=== PATIENT | male | born 1970 | race Caucasian/White ===

== ENCOUNTER 2016-08-09 10:05 | Inpatient (IN) | payer BC ==
--- NOTE | ~2016-08-09 | CN ---
Consultation Report [address] [place]. [address] NAME: FLORA BULL : 72 STATUS : DIS IN PAT#: [id number] AGE: 45 ADM/REG DATE : 08/09/16 MR#: [id number] REPORT SERV DATE: 08/18/16 DICTATED BY: REHAN SORIA DATE: 08/18/16 REPORT STATUS : Draft TRANSCRIBED BY: MODL DATE: 08/18/16 CONSULTATION DATE OF CONSULTATION: 08/09/2016 I am asked to see this gentleman with abdominal pain. HISTORY OF PRESENT ILLNESS: This 45-year-old gentleman has a longstanding history of Crohn disease. This is primarily involving the small bowel and the colon. He has had several surgeries for recurrent disease. He was seen as an outpatient ten days prior to admission with increasing abdominal pain. The symptoms were refractory to oral prednisone. He has been admitted for evaluation. He reports upper abdominal pain with intermittent nausea and vomiting. He has had occasional cramping with large volume loose runny stools. There was occasional blood in the stool. He denies chills, fever, sweats, or arthralgias. GENERAL REVIEW OF SYSTEMS: Otherwise unremarkable. PHYSICAL EXAMINATION: HEENT: Head, eyes, ears, nose, and throat grossly normal. NECK: Supple. CHEST: Clear. CARDIAC: Regular rhythm without rubs or murmurs. ABDOMEN: Soft with moderate distention. Bowel sounds are active. There is mild to marked tenderness in the periumbilical area. No masses were palpable. IMPRESSION: 1. History of Crohn disease, small bowel and colon. 2. Increasing abdominal pain. PLAN: 1. Follow up lab reports. 2. Begin treatment with IV steroids and Flagyl. 3. Surgical consultation will be obtained at the earliest moment. Thank you for allowing me to see this gentleman. DWAYNE/POONAM Rehan Soria M.D. Consultation Report [address] [place]. [address] NAME: FLORA BULLNE : 72 STATUS : DIS IN PAT#: [id number] AGE: 45 ADM/REG DATE : 08/09/16 MR#: [id number] REPORT SERV DATE: 08/18/16 DICTATED BY: REHAN SORIA DATE: 08/18/16 REPORT STATUS : Draft TRANSCRIBED BY: POONAM DATE: 08/18/16 / [id number] CC: Dawson Herr MD
--- NOTE | ~2016-08-09 | DS ---
Discharge Summary [address] [place]. [address] NAME: FLORA BULL : 72 STATUS : DIS IN PAT#: [id number] AGE: 45 ADM/REG DATE : 08/09/16 MR#: [id number] REPORT SERV DATE: 08/12/16 DICTATED BY: DAWSON VILLELA DATE: 08/11/16 REPORT STATUS : Draft TRANSCRIBED BY: MODGuanako DATE: 08/11/16 ADMISSION DATE: 08/09/2016 DISCHARGE DATE: 08/11/2016 PROCEDURES DONE: On 08/10/2016 biopsy of the rectum. CONSULTATIONS: 1. Dr. Ho for Surgery. 2. Dr. Fernando Polk for GI. REASON FOR ADMISSION: Abdominal pain. HISTORY OF HOSPITAL STAY: A 45-year-old white male with past medical history of Crohn disease, tobacco abuse, alcohol abuse, presenting with abdominal pain. The patient was admitted for evaluation of his abdominal pain. The patient has had extensive surgery regarding his Crohn disease. In this admission, he was also noted to having a rectal pain. CT scan was done of the abdomen which shows no significant abscess; however, there was concern about anorectal pain; hence, biopsies were taken. The patient states that he feels much better postprocedure. GI also has been consulted for further evaluation and treatment. The patient was initially started on Levaquin and Flagyl for empiric treatment. GI felt the patient can be safely discharged. GI recommended the patient to follow up within one week's time. DISPOSITION: The patient is feeling fine, no complaint. ACTIVITY: As tolerated. DIET: Regular. INSTRUCTIONS UPON DISCHARGE: 1. The patient will follow with GI within one week's time. 2. The patient will follow up with Surgery within six weeks' time. MEDICATIONS UPON DISCHARGE: 1. Prednisone 20 mg p.o. daily. 2. Tylenol 50 mg p.o. 3. Tylenol PM p.r.n. DIAGNOSES UPON DISCHARGE: 1. Abdominal pain secondary to questionable Crohn's exacerbation. 2. Crohn's exacerbation. 3. Tobacco abuse. 4. Alcohol abuse. Discharge Summary [address] [place]. [address] NAME: FLORA BULL : 72 STATUS : DIS IN PAT#: [id number] AGE: 45 ADM/REG DATE : 08/09/16 MR#: [id number] REPORT SERV DATE: 08/12/16 DICTATED BY: DAWSON VILLELA DATE: 08/11/16 REPORT STATUS : Draft TRANSCRIBED BY: POONAM DATE: 08/11/16 ERICA/POONAM Dawson Villela MD / [id number] CC: Dawson Villela MD
--- NOTE | ~2016-08-09 | CN ---
Consultation Report [facility] [address] [place]. [address] NAME: FLORA BULL : 72 STATUS : ADM IN PAT#: [id number] AGE: 45 ADM/REG DATE : 08/09/16 MR#: [id number] REPORT SERV DATE: 08/09/16 DICTATED BY: JADIEL HO DATE: 08/09/16 REPORT STATUS : Draft TRANSCRIBED BY: MODL DATE: 08/09/16 SURGERY CONSULT NOTE DATE OF CONSULTATION: 08/09/2016 REASON FOR CONSULTATION: Consult is regarding Crohn's with anal pain. HISTORY OF PRESENT ILLNESS: This is a 45-year-old male with a 16-year history of Crohn's having been diagnosed in 2000. The patient states he has had one prior surgery in [address] Squires which was an enterectomy for obstruction. Previously, the patient states that he has been on medications including Remicade and Humira and states he has been off Humira for over seven years and previously was taking some other p.o. medications that he took daily but he does not know what this is. He states that he has now been off all medications for over a year, possibly two years secondary having doing well and having been weaned off. He does see Dr. Polk as an outpatient. He now complains that he is having increased loose bowel movements x1 year which sometimes is 15-20 times a day related to his p.o. intake. However, these intermittent flares do not usually last this long. Now, he complains of two weeks of this type of increased bowel movement activity as well as two weeks of severe anal pain with his bowel movements. He states "it feels like poison coming out of my rear-end." He was trialed on p.o. steroids as an outpatient by Dr. Polk but was refractory to this and states that he came to the hospital today because he just could not stand the pain any longer. He is now admitted for IV steroids and Flagyl. In addition to these other findings, the patient states that he has been having more rashes on his limbs recently which are otherwise unexplained but which he thinks are related to his Crohn disease. His last colonoscopy was three years ago, and the patient is not aware of the findings of the colonoscopy at this time, and I do not have records of it at this time. He states that Dr. Polk had planned to do another colonoscopy on him but was trying to get his flare under control first. PAST MEDICAL HISTORY: Includes Crohn disease. PAST SURGICAL HISTORY: Includes an enterectomy x1 with anastomosis, a right hand surgery as well as multiple colonoscopies. MEDICATIONS: Again, the patient is admitted and placed on IV steroids and Flagyl, has no outpatient Crohn's medications. He states he takes Tylenol every day, otherwise please see the MAR. ALLERGIES: INCLUDE IV DYE WHICH CAUSES A RASH AND HIVES. SOCIAL HISTORY: The patient states that he drinks approximately a six-pack of beer five to six days per week. He also smokes a pack of cigarettes per day and denies any recreational or street drugs. Consultation Report [address] [place]. [address] NAME: FLORA BULL : 72 STATUS : ADM IN PAT#: [id number] AGE: 45 ADM/REG DATE : 08/09/16 MR#: [id number] REPORT SERV DATE: 08/09/16 DICTATED BY: JADIEL HO DATE: 08/09/16 REPORT STATUS : Draft TRANSCRIBED BY: POONAM DATE: 08/09/16 REVIEW OF SYSTEMS: A comprehensive review of systems was performed and was negative except as noted in the HPI. Specifically, the patient denies any abdominal pain at this time. His only complaint is perianal and "colon pain." PHYSICAL EXAMINATION: VITAL SIGNS: Temperature 98, blood pressure 117/73, pulse of 71, respirations 16, saturating 98% on room air. HEENT: Normocephalic, atraumatic. Pupils are equal, round, reactive to light. Extraocular movements and cranial nerves 2 through 12 are grossly intact. His nares are patent. His mucous membranes are moist. There is no obvious obstruction in his oropharynx. NECK: Supple. His trachea is midline. CARDIOVASCULAR: Regular rate and rhythm. No murmurs, rubs, or gallops. LUNGS: Clear to auscultation bilaterally. No rhonchi. No wheezes. ABDOMEN: Soft, nondistended, nontender. He does have a prior midline laparotomy scar. The patient has no rebound, no point tenderness to palpation. No focal or generalized peritonitis. Bowel sounds are present in all four quadrants, and I do not appreciate any masses pulsatile or otherwise. EXTREMITIES: The patient is able to move all 4 extremities equally. He has no focal neurological deficits. I am able to palpate distal pulses in all four of his extremities. SKIN: I do not appreciate any rashes at this time. Otherwise, it is warm, dry, and intact. RECTUM: An external rectal exam was performed which showed no skin tags. No external evidence of fissures or fistulas. No erythema and no induration or fluctuance consistent with an abscess. An internal exam was deferred secondary to discomfort and pain from the patient. LABS: Hepatitis panel is negative for any acute infection but also negative for hepatitis B immunity. White blood cells 17.9, hemoglobin 15.6, hematocrit 44.3, platelets of 290, neutrophil 79.7%, lactate is 1.8 which is within normal limits. CMP shows a procalcitonin of 0.06. Sodium 141, potassium 4.0, chloride 107, CO2 of 21, BUN 10, creatinine 0.9, glucose 106, calcium 8.9, total protein 7.1, albumin 3.8, ALT 45, AST 19, alkaline phosphatase 91, total bilirubin 0.6, lipase of 509. IMAGING: A CT of the abdomen and pelvis without contrast essentially shows only heterogeneous hepatic steatosis but no other suspicious abnormalities. Specifically, there are no masses, fluid collections, or abnormally enlarged lymph nodes. There is no suspicious segment of abnormal bowel dilatation or wall thickening. No evidence of pericolonic or mesenteric inflammation. There is a noted surgical anastomosis near the ileo colic junction and no evidence of any perirectal abscess. ASSESSMENT AND PLAN: A 45-year-old male with Crohn's flare as well as proctitis. There is no evidence of any abscess at this time. I agree with IV steroids and Flagyl. 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 Again, no evidence of any abscess on CT and no indication for any surgical intervention at this time. We will follow Consultation Report [place] [address] [place]. [address] NAME: FLORA BULL : 72 STATUS : ADM IN PAT#: [id number] AGE: 45 ADM/REG DATE : 08/09/16 MR#: [id number] REPORT SERV DATE: 08/09/16 DICTATED BY: JADIEL HO DATE: 08/09/16 REPORT STATUS : Draft TRANSCRIBED BY: MODL DATE: 08/09/16 with you and are available as needed. This patient has been discussed with Dr. Ho, the attending who agrees. Thank you very much for this consult. DICTATED BY: Gisele Carrasquillo MD SE/POONAM Jadiel Ho MD / [id number] CC: Dawson Herr MD
--- NOTE | ~2016-08-09 | HP ---
History And Physical [place] [id number] [place]. [address] NAME: FLORA BULL : 72 STATUS : ADM IN [facility]#: [id number] AGE: 45 ADM/REG DATE : 08/09/16 MR#: [id number] REPORT SERV DATE: 08/09/16 DICTATED BY: JESSE MENDOZA DATE: 08/09/16 REPORT STATUS : Draft TRANSCRIBED BY: POONAM DATE: 08/09/16 DATE OF ADMISSION: 08/09/2016 CHIEF COMPLAINT: Abdominal pain. Rectal pain. HISTORY OF PRESENT ILLNESS: The patient is a very pleasant 45-year-old white male, with a 15 years history of Crohn's disease, currently off all medications. About two weeks ago, developed lower abdominal pelvic pain and rectal pain. He had some sweating and chills but did not take his temperature. He has continuous diarrhea which is a daily problem for him. He has noticed some blood on the toilet paper. He was prescribed some prednisone by Dr. Polk but he failed to improve. His pain became intense over the last 24 hours and he felt he needed to seek care at the ER. He has had some nausea and occasional vomiting but nothing significant or consistent in that regard. Again he has been off all his Crohn's medications now for at least 6 to 7 months. PAST MEDICAL HISTORY: Crohn's disease. SOCIAL HISTORY: He admits to drinking 6 to 9 beers daily. He smoked a pack per day. He is . 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 ALLERGIES: TO IV DYE. PAST SURGICAL HISTORY: He has had a bowel resection in 2006, secondary to his stricture. FAMILY HISTORY: Negative for any inflammatory bowel disease. HOME MEDICATIONS: Prednisone 20 daily. REVIEW OF SYSTEMS: Full 10-point review of systems obtained. Pertinent positives mentioned in the HPI. PHYSICAL EXAMINATION: VITAL SIGNS: His temperature is 98.0, blood pressure 126/80, pulse 86, respiratory rate 19, and sats 98%. GENERAL: Well-developed white male, in no apparent distress. HEENT: Normocephalic, atraumatic. Throat is clear. NECK: Supple. HEART: Regular rate and rhythm. LUNGS: Grossly clear. ABDOMEN: Soft, nondistended. He has some mild pelvic tenderness. EXTREMITIES: Warm and dry. SKIN: Intact. LAB AND X-RAY STUDIES: Basic metabolic panel is normal. CBC: White count 17.9, H and H 15 and 44, and platelets 290. Lactate is 1.8. Basic metabolic panel is essentially normal other than a CO2 of 21. Lipase is 508. CT abdomen and pelvis shows no evidence of acute abnormality, no fluid collections, no dilatation or wall thickening in the surgical suture line near the ileocolic junction. History And Physical [address] [address] NAME: FLORA BULL : 72 STATUS : ADM IN PAT#: [id number] AGE: 45 ADM/REG DATE : 08/09/16 MR#: [id number] REPORT SERV DATE: 08/09/16 DICTATED BY: JESSE MENDOZA DATE: 08/09/16 REPORT STATUS : Draft TRANSCRIBED BY: POONAM DATE: 08/09/16 ASSESSMENT/PLAN: 1. Crohn's with likely exacerbation as evidenced by abdominal pain; leukocytosis; blood in the stool; and not being on any immunosuppressive medications for 6 to 7 months. We would recommend placing him empirically on IV Flagyl and Levaquin. Obtain stool studies for Clostridium difficile, O and P, and culture. Provide IV fluids, p.r.n. analgesics, and antiemetics. We will go ahead and continue his prednisone for now at the current dose. If his Clostridium difficile is positive, we will start oral vancomycin and stop the IV Levaquin. I have called Dr. Polk's office, they will see him in consultation. We will defer IV steroids to him. 2. Tobacco abuse. Needs cessation. 3. EtOH abuse. We will place him on the alcohol withdrawal protocol just in case he has any evidence of withdrawal. I have recommended that he cut back on his drinking significantly. 4. Disposition pending above aforementioned plan and workup. 5. Deep venous thrombosis prophylaxis. We will hold off since he has blood in his stool. ANNA/POONAM Jesse Mendoza M.D. / [id number] CC: MD Fernando Kirk M.D.
--- NOTE | ~2016-08-09 | OP ---
Record Of Operation [facility] [address] [place]. [address] NAME: FLORA BULL : 72 STATUS : DIS IN PAT#: [id number] AGE: 45 ADM/REG DATE : 08/09/16 MR#: [id number] REPORT SERV DATE: 08/30/16 DICTATED BY: JADIEL HO DATE: 08/30/16 REPORT STATUS : Draft TRANSCRIBED BY: MODL DATE: 08/30/16 DATE OF PROCEDURE: Surgery as examined under anesthesia with biopsy. COMPLICATIONS: None. IV FLUIDS: Per Anesthesia record. ESTIMATED BLOOD LOSS: Minimal. SURGEON: Jadiel Ho MD PREPROCEDURE DIAGNOSIS: Perianal Crohn's disease. POSTPROCEDURE DIAGNOSIS: Perianal Crohn's disease. SPECIMENS: Multiple hypertrophic papillae were sent for permanent pathology. FINDINGS: The patient had a left lateral sided seizure, but no hypertrophic band, therefore, no lateral internal sphincterotomy was performed. PROCEDURE IN DETAIL: Preoperatively, the patient was definitively identified in the holding area. It was confirmed that a signed consent was on chart. The patient was then transferred to the operating room and placed in left lateral decubitus position. After appropriate surgical pause, heavy sedation was administered by Anesthesia Team. The patient was prepped and draped in normal sterile fashion. A perianal block was performed with local anesthetic with good effect. Complete exam under anesthesia with small, medium, large and extra-large Hill-Croft anoscope was anoscope was performed. See findings as mentioned above. Several small hypertrophic papillae were sent as specimens as well as the edges of the fissure. In the setting of Crohn disease, I did not perform any additional interventions on the fissure except to stretch the anal sphincter a small amount. There is no specific hypertrophic band. At the conclusion of this procedure, an extra-large Hill-Croft anoscope was easily admitted without tension in the anus. Because there do not seem to be a hypertrophic component, I elected not to inject Botox. After placement of a dry dressing the patient was returned to the supine position and back to the postanesthesia care in stable condition. DILIPN/POONAM Jadiel Ho MD / [id number] Record Of Operation [address] [address] NAME: FLORA BULL : 72 STATUS : DIS IN PAT#: [id number] AGE: 45 ADM/REG DATE : 08/09/16 MR#: [id number] REPORT SERV DATE: 08/30/16 DICTATED BY: JADIEL HO DATE: 08/30/16 REPORT STATUS : Draft TRANSCRIBED BY: POONAM DATE: 08/30/16 CC: Dawson Herr MD
[2016-08-09 10:00] LABS: BASOPHILS 0.1 %; BASOPHILS ABSOLUTE 0.02 10/3/uL (0.0-0.16); EOSINOPHILS 0.5 %; EOSINOPHILS ABSOLUTE 0.09 10/3/uL (0.0-0.53); ER CBC TAT 0 Hrs 10 Mins; HEMOGLOBIN 15.6 g/dL (13.6-17.8); IMMATURE GRANULOCYTES 0.4 %; IMMATURE GRANULOCYTES ABSOLUTE 0.08 10/3/uL (0.0-0.11); LYMPHOCYTES 15.7 %; LYMPHOCYTES ABSOLUTE 2.81 10/3/uL (0.67-4.30); MEAN CORPUS HGB CONC 35.2 g/dL (32.0-36.0); MEAN PLATELET VOLUME 8.9 fL (9.2-13.0); MONOCYTES 3.6 %; MONOCYTES ABSOLUTE 0.64 10/3/uL (0.21-1.20); NEUTROPHILS 79.7 %; PLATELET COUNT 290 10/3/uL (150-400); RBC DISTRIBUTION WIDTH 13.8 % (12.0-16.0); RED CELL COUNT 4.86 10/6/uL (4.7-6.1); WHITE BLOOD CELLS 17.9 10/3/uL (4.5-10.5)
[2016-08-09 10:01] LABS: HEMATOCRIT 44.3 % (40.0-51.0); MANUAL DIFF NO %; MEAN CORPUSCULAR HEMOGLOB 32.1 pg (26.0-34.0); MEAN CORPUSCULAR VOLUME 91.2 fL (80-100)
[~2016-08-09 10:05] MED LIST: BENTYL20 PO; DICYCLOMINE
[2016-08-09 10:16] LABS: LACTATE 1.8 MMOL/L (0.3-2.4)
[2016-08-09 10:17] LABS: A/G RATIO 1.2 (0.7-1.9); ALBUMIN 3.8 G/DL (3.5-5.0); ALKALINE PHOSPHATASE 91 U/L (45-117); BUN (BLOOD UREA NITROGEN) 10 MG/DL (6-23); CALCIUM, SERUM 8.9 MG/DL (8.5-10.4); CHLORIDE, SERUM 107 MMOL/L (96-112); CO2 (CARBON DIOXIDE) 21 MMOL/L (24-34); GFR AFRICAN AMERICAN 120 ML/MIN (>=60); GFR NON AFRICAN AMERICAN 104 ML/MIN (>=60); GLOBULIN 3.3 G/DL (2.5-4.1); GLUCOSE, SERUM 106 MG/DL (60-99); SGOT(AST) 19 U/L (5-40); SGPT(ALT) 45 U/L (5-65); SODIUM, SERUM 141 MMOL/L (135-148); TOTAL BILIRUBIN 0.6 MG/DL (0-1.2); TOTAL PROTEIN 7.1 G/DL (6.0-8.5)
[2016-08-09] MEDS ORDERED: P20 PO (11:14)
[2016-08-09] MEDS ORDERED: PREPARATIO H PR (11:16)
[2016-08-09] MEDS ORDERED: ACET500CAP PO (11:16)
[2016-08-09] MEDS ORDERED: TYLENOL PM PO (11:21)
[2016-08-09 15:51] LABS: PROCALCITONIN 0.06 ng/mL (<0.5)
[2016-08-09 17:37] LABS: ASCORBIC ACID (UR NOT ORDER) NEG (NEG); BILIRUBIN, URINE NEGATIVE (NEG); KETONE, URINE TRACE MG/DL (NEG); LEUKOCYTE ESTERASE(NOT OR NEG (NEG); WBC (NOT ORDERED) (RFLEX) < 1 (0-5)
[2016-08-10 06:10] LABS: BASOPHILS 0.1 %; BASOPHILS ABSOLUTE 0.02 10/3/uL (0.0-0.16); EOSINOPHILS 0.2 %; EOSINOPHILS ABSOLUTE 0.03 10/3/uL (0.0-0.53); HEMATOCRIT 40.9 % (40.0-51.0); HEMOGLOBIN 13.6 g/dL (13.6-17.8); IMMATURE GRANULOCYTES 0.3 %; IMMATURE GRANULOCYTES ABSOLUTE 0.04 10/3/uL (0.0-0.11); LYMPHOCYTES 23.2 %; LYMPHOCYTES ABSOLUTE 3.17 10/3/uL (0.67-4.30); MEAN CORPUSCULAR HEMOGLOB 31.1 pg (26.0-34.0); MEAN CORPUSCULAR VOLUME 93.4 fL (80-100); MEAN PLATELET VOLUME 9.1 fL (9.2-13.0); MONOCYTES 5.3 %; MONOCYTES ABSOLUTE 0.72 10/3/uL (0.21-1.20); NEUTROPHILS 70.9 %; PLATELET COUNT 248 10/3/uL (150-400); RBC DISTRIBUTION WIDTH 14.1 % (12.0-16.0); RED CELL COUNT 4.38 10/6/uL (4.7-6.1); WHITE BLOOD CELLS 13.7 10/3/uL (4.5-10.5)
[2016-08-10 06:19] LABS: MANUAL DIFF NO %; MEAN CORPUS HGB CONC 33.3 g/dL (32.0-36.0)
[2016-08-10 06:21] LABS: BUN (BLOOD UREA NITROGEN) 8 MG/DL (6-23); CALCIUM, SERUM 8.1 MG/DL (8.5-10.4); CHLORIDE, SERUM 106 MMOL/L (96-112); CO2 (CARBON DIOXIDE) 25 MMOL/L (24-34); CREATININE 0.68 MG/DL (0.70-1.30); GFR AFRICAN AMERICAN 135 ML/MIN (>=60); GFR NON AFRICAN AMERICAN 116 ML/MIN (>=60); GLUCOSE, SERUM 126 MG/DL (60-99); SGOT(AST) 11 U/L (5-40); SGPT(ALT) 31 U/L (5-65); SODIUM, SERUM 141 MMOL/L (135-148); TOTAL BILIRUBIN 0.9 MG/DL (0-1.2)
[2016-08-10 06:23] LABS: A/G RATIO 1.1 (0.7-1.9); ALBUMIN 2.9 G/DL (3.5-5.0); ALKALINE PHOSPHATASE 73 U/L (45-117); GLOBULIN 2.6 G/DL (2.5-4.1); TOTAL PROTEIN 5.5 G/DL (6.0-8.5)
[2016-08-11 06:55] LABS: BASOPHILS 0 %; EOSINOPHILS 0 %; HEMATOCRIT 40.2 % (40.0-51.0); HEMOGLOBIN 13.4 g/dL (13.6-17.8); IMMATURE GRANULOCYTES 0.5 %; IMMATURE GRANULOCYTES ABSOLUTE 0.06 10/3/uL (0.0-0.11); LYMPHOCYTES 21.6 %; LYMPHOCYTES ABSOLUTE 2.47 10/3/uL (0.67-4.30); MEAN CORPUS HGB CONC 33.3 g/dL (32.0-36.0); MEAN CORPUSCULAR HEMOGLOB 31.5 pg (26.0-34.0); MEAN CORPUSCULAR VOLUME 94.4 fL (80-100); MONOCYTES 6.5 %; MONOCYTES ABSOLUTE 0.74 10/3/uL (0.21-1.20); NEUTROPHILS 71.4 %; NEUTROPHILS ABSOLUTE 8.18 10/3/uL (2.02-8.40); PLATELET COUNT 248 10/3/uL (150-400); RBC DISTRIBUTION WIDTH 13.9 % (12.0-16.0); RED CELL COUNT 4.26 10/6/uL (4.7-6.1); WHITE BLOOD CELLS 11.5 10/3/uL (4.5-10.5)
[2016-08-11 06:56] LABS: MANUAL DIFF NO %
[2016-08-11 07:12] LABS: ALBUMIN 2.9 G/DL (3.5-5.0); ALKALINE PHOSPHATASE 71 U/L (45-117); BUN (BLOOD UREA NITROGEN) 8 MG/DL (6-23); CALCIUM, SERUM 8.4 MG/DL (8.5-10.4); CHLORIDE, SERUM 106 MMOL/L (96-112); CO2 (CARBON DIOXIDE) 28 MMOL/L (24-34); CREATININE 0.63 MG/DL (0.70-1.30); GFR AFRICAN AMERICAN 139 ML/MIN (>=60); GFR NON AFRICAN AMERICAN 120 ML/MIN (>=60); GLUCOSE, SERUM 135 MG/DL (60-99); PHOSPHORUS, SERUM 3.2 MG/DL (2.5-4.5); SGOT(AST) 15 U/L (5-40); SGPT(ALT) 29 U/L (5-65); SODIUM, SERUM 141 MMOL/L (135-148); TOTAL BILIRUBIN 0.5 MG/DL (0-1.2); TOTAL PROTEIN 5.9 G/DL (6.0-8.5)
[2016-08-17] MEDS ORDERED: FLAG500TAB PO (17:25)
[2016-08-17] MEDS ORDERED: NIFEDIPINE (17:29)
== END 2016-08-11 19:09 | disposition home or self-care (01) | DRG 346 ==
LOC: ER 10:05 → 2SO 12:30
PROVIDERS: Hospitalist; Internal Medicine; Nurse Practitioner; Surgery
PROC: 0DBE0ZX Excision of Large Intestine, Open Approach, Diagnostic (ICD-10-PCS; principal; 2016-08-10 16:45)
DX: K50.111 Crohn's disease of large intestine with rectal bleeding (principal); F10.10 Alcohol abuse, uncomplicated; F17.210 Nicotine dependence, cigarettes, uncomplicated; K62.89 Other specified diseases of anus and rectum; K60.2 Anal fissure, unspecified; Z79.52 Long term (current) use of systemic steroids; Z90.49 Acquired absence of other specified parts of digestive tract
CPT/HCPCS: 74176; 80053; 81001; 82150; 83605; 83690; 83735; 84100; 84145; 85025; 87040; 87045; 87046; 87046-59; 87328; 87329; 87493; 87493-59; 87899; 87899-59; 88305; 89055; 96374; 99285; A9270-GY; J1170; J1720; J1956; J2250; J2405; J3010; J3411

== ENCOUNTER 2016-08-18 12:13 | Day surgery (SDC) | payer BC ==
--- NOTE | ~2016-08-18 | EGD ---
EGD REPORT [facility] [address] [place] [address] NAME: FLORA DUGAN : 72 STATUS : REG [facility]#: [id number] AGE: 45 ADM/REG DATE : 08/18/16 MR#: [id number] REPORT SERV DATE: 08/18/16 DICTATED BY: REHAN SORIA DATE: 08/18/16 REPORT STATUS : Draft TRANSCRIBED BY: [facility] DATE: 08/18/16 Endoscopy Center Patient Name: Flora Dugan Date of : 1970 Attending MD: REHAN SORIA MD Procedure Date No Time: 08/18/2016 Procedure: Colonoscopy Indications: Pelvic pain, Personal history of Crohn's disease Medicines: Propofol per Anesthesia Complications: No immediate complications. Procedure: Pre-Anesthesia Assessment: - ASA Grade Assessment: II - A patient with mild systemic disease. After I obtained informed consent, the scope was passed under direct vision. Throughout the procedure, the patient's blood pressure, pulse, and oxygen saturations were monitored continuously. The CF [id number] was introduced through the anus and advanced to the cecum, identified by appendiceal orifice and ileocecal valve. The colonoscopy was performed without difficulty. The patient tolerated the procedure well. The quality of the bowel preparation was good. Findings: A patchy area of mildly erythematous mucosa was found in the sigmoid colon. The exam was otherwise without abnormality on direct and retroflexion views. Impression: - Erythematous mucosa in the sigmoid colon. - The examination was otherwise normal on direct and retroflexion views. Procedure Code(s): --- Professional --- 40272, Colonoscopy, flexible, proximal to splenic flexure; diagnostic, with or without collection of specimen(s) by brushing or washing, with or without colon decompression (separate procedure) Diagnosis Code(s): --- Professional --- K63.9, Disease of intestine, unspecified R10.2, Pelvic and perineal pain Z87.19, Personal history of other diseases of the digestive system EGD REPORT [place] [address] [address] NAME: FLORA DUGAN : 72 STATUS : REG [facility] PAT#: [id number] AGE: 45 ADM/REG DATE : 08/18/16 MR#: [id number] REPORT SERV DATE: 08/18/16 DICTATED BY: REHAN SORIA DATE: 08/18/16 REPORT STATUS : Draft TRANSCRIBED BY: [facility] DATE: 08/18/16 CPT copyright 2013 [employer]. All rights reserved. The codes documented in this report are preliminary and upon closing coordinator review may be revised to meet current compliance requirements. REHAN SORIA MD 08/18/2016 1:41 PM This report has been signed electronically. Number of Addenda: 0 Note Initiated On: 08/18/2016 1:09 PM Scope Withdrawal Time 0 hours 3 minutes [address] [place], [place] [address] [address]
[~2016-08-18 12:13] MED LIST changes: +ACET500CAP PO; +FLAG500TAB PO; +NIFEDIPINE; +P20 PO; +PREPARATIO H PR; +TYLENOL PM PO
== END 2016-08-18 23:59 | disposition home or self-care (01) ==
LOC: DMU 12:13
PROVIDERS: Internal Medicine Gastroenterology
PROC: 0DJD8ZZ Inspection of Lower Intestinal Tract, Via Natural or Artificial Opening Endoscopic (ICD-10-PCS; principal; 2016-08-18 13:30)
DX: K63.9 Disease of intestine, unspecified (principal); F17.210 Nicotine dependence, cigarettes, uncomplicated; Z87.19 Personal history of other diseases of the digestive system; Z88.5 Allergy status to narcotic agent; Z98.890 Other specified postprocedural states

== ENCOUNTER 2016-09-12 19:02 | Inpatient (IN) | payer BC ==
--- NOTE | ~2016-09-12 | DS ---
Discharge Summary [facility] [address] [facility] [place]. [address] NAME: FLORA BULL : 72 STATUS : DIS IN PAT#: [id number] AGE: 46 ADM/REG DATE : 09/12/16 MR#: [id number] REPORT SERV DATE: 12/07/16 DICTATED BY: REHAN SORIA DATE: 12/05/16 REPORT STATUS : Draft TRANSCRIBED BY: POONAM DATE: 12/05/16 ADMISSION DATE: 09/12/2016 DISCHARGE DATE: 09/18/2016 PRINCIPAL DIAGNOSIS: Crohn disease. SECONDARY DIAGNOSIS: Abdominal pain. This gentleman with Crohn disease was admitted with recurrent nausea and vomiting. He has a known history of Crohn disease, which has been resected in the past. Examination on admission showed mild abdominal tenderness and mild distention. HOSPITAL COURSE: CT of the abdomen and small bowel series did show mild stricturing in the terminal ileum. He was treated with steroids and seemed to improve. He is discharged to be followed as an outpatient. CONDITION AT DISCHARGE: Stable. DISPOSITION: Outpatient followup. NADIA Rehan Soria M.D. / [id number] CC: Rehan Soria M.D. NO PCP
--- NOTE | ~2016-09-12 | CN ---
Consultation Report [facility] [address] [place]. [address] NAME: FLORA BULL : 72 STATUS : DIS IN PAT#: [id number] AGE: 45 ADM/REG DATE : 09/12/16 MR#: [id number] REPORT SERV DATE: 09/18/16 DICTATED BY: JADIEL HO DATE: 09/18/16 REPORT STATUS : Draft TRANSCRIBED BY: MODL DATE: 09/18/16 SURGERY CONSULTATION NOTE DATE OF CONSULTATION: 09/12/2016 REASON FOR CONSULT: History of Crohn disease with abdominal pain. HISTORY OF PRESENT ILLNESS: This is a 45-year-old man, known to this service with a history of chronic abdominal pain, diarrhea, known anal fissure, and a known history of Crohn's. He presented to the hospital this admission due to persistence of his abdominal pain. Of note, he has been on steroids as an outpatient and has recently started his Humira dosing. He does endorse some associated nausea and vomiting which are resolving. Denies any fevers. Denies any chills. Denies any acute change to his bowel habits, but is still having some diarrhea and loose stools, occasionally blood-tinged. PAST MEDICAL HISTORY: Crohn's disease. PAST SURGICAL HISTORY: Right hand surgery, colonoscopy, small-bowel resection with anastomosis due to stricture. SOCIAL HISTORY: Significant for alcohol use. He is a 7-pywr-ceb-day smoker. Denies illicit drug use. ALLERGIES: IV DYE. HOME MEDICATIONS: PPI, Humira, prednisone, Flagyl, and [place]. REVIEW OF SYSTEMS: Pertinent positives and negatives as above per the HPI. Of note, the patient does say that he was able to follow up as an outpatient with Dr. Ho after a previous admission with consultation at which point, there was no acute change to his care. However, it was noted the patient was diagnosed with an anal fissure at that time. However, it was determined that the patient would need better control of his Crohn disease before additional interventions would be undergone for the fissure. PHYSICAL EXAMINATION: VITAL SIGNS: Temperature 98.4, blood pressure 123/79, heart rate 107, respirations 18, breathing 96% on room air. GENERAL: This is a dull, white male, in no acute distress. He is nontoxic appearing. CARDIOVASCULAR: Regular rate and rhythm. PULMONARY: Clear to auscultation bilaterally. ABDOMEN: Soft, nondistended. Focally tender to palpation at the epigastrium. On review, no rebound, no guarding, no peritonitis. RECTAL: Externally, there were no lesions noted. Digital exam was deferred due to pain and Consultation Report [facility] [id number] [place]. [address] NAME: FLORA BULL : 72 STATUS : DIS IN PAT#: [id number] AGE: 45 ADM/REG DATE : 09/12/16 MR#: [id number] REPORT SERV DATE: 09/18/16 DICTATED BY: JADILE HO DATE: 09/18/16 REPORT STATUS : Draft TRANSCRIBED BY: POONAM DATE: 09/18/16 his known fissure. LABS: White count 17.7, hematocrit 41, platelets 324. Renal panels within normal limits. Total bilirubin 0.5. IMAGING: Plain film of the abdomen reveals nonspecific gas pattern. ASSESSMENT AND PLAN: This is a 45-year-old male, known to have a history of Crohn disease with abdominal pain, diarrhea, and leukocytosis. 1. Benign abdominal exam. The patient is currently clinically stable. 2. Agree with IV antibiotics and steroids for likely Crohn's flare. 3. We will follow along with serial exams and monitor the patient's progression. DICTATED BY: MD ROSALVA Begum/POONAM Jadiel Ho MD / [id number] CC: Fernando Polk M.D.
--- NOTE | ~2016-09-12 | HP ---
History And Physical [address] [address] NAME: FLORA BULL : 72 STATUS : ADM IN PAT#: [id number] AGE: 45 ADM/REG DATE : 09/12/16 MR#: [id number] REPORT SERV DATE: 09/13/16 DICTATED BY: REHAN SORIA DATE: 09/13/16 REPORT STATUS : Draft TRANSCRIBED BY: POONAM DATE: 09/13/16 DATE OF ADMISSION: 09/12/2016 This gentleman is being admitted with nausea, vomiting, and abdominal pain. HISTORY OF PRESENT ILLNESS: This 45-year-old gentleman has a longstanding history of Crohn disease. He has had two resections of the bowel in the past. Recent developments have included rectal discomfort with the fissure found by Dr. Ho of Surgery Department. In the last week or so, he has had increasing epigastric pain with nausea and vomiting. He has had intermittent diarrhea without blood in the stools. He notes weakness and fatigue, and denies chills or fever. OUTPATIENT MEDICATIONS: Include prednisone 40 mg daily as well as Humira. PHYSICAL EXAMINATION: HEENT: Head, eyes, ears, nose, and throat are grossly normal. NECK: Supple. CHEST: Clear. CARDIAC: Regular rhythm without rubs or murmurs. ABDOMEN: Soft with mild periumbilical tenderness. Bowel sounds are active and high pitched. Abdomen is slightly distended with no palpable masses. It is mildly to moderately tympanitic. IMPRESSION: 1. Crohn disease, colon and small intestine. 2. Nausea, vomiting, question small bowel Crohn disease with obstruction. PLAN: Admit for diagnosis and treatment. We will use IV steroids and antibiotics. We will check CT of the abdomen and small bowel series. Dr. Ho of Surgery has been consulted. DWAYNE/POONAM Rehan Soria M.D. / [id number] CC: Rehan Soria M.D.
[2016-09-12] MEDS ORDERED: PRILO PO (19:38)
[2016-09-12] MEDS ORDERED: NORCO1 TA1 PO (19:38)
[2016-09-12] MEDS ORDERED: FLAG500TAB PO (19:38)
[2016-09-12] MEDS ORDERED: PREVALITE4 G1 PO (19:38)
[2016-09-12] MEDS ORDERED: P20 PO (19:39)
[2016-09-12] MEDS ORDERED: HUMIRA PEN SC ×3 (19:42→19:44)
[2016-09-12 21:23] LABS: BASOPHILS 0.1 %; BASOPHILS ABSOLUTE 0.01 10/3/uL (0.0-0.16); EOSINOPHILS 0.6 %; EOSINOPHILS ABSOLUTE 0.11 10/3/uL (0.0-0.53); HEMATOCRIT 41.8 % (40.0-51.0); HEMOGLOBIN 14.5 g/dL (13.6-17.8); IMMATURE GRANULOCYTES 0.5 %; IMMATURE GRANULOCYTES ABSOLUTE 0.08 10/3/uL (0.0-0.11); LYMPHOCYTES 35.2 %; LYMPHOCYTES ABSOLUTE 6.22 10/3/uL (0.67-4.30); MEAN CORPUS HGB CONC 34.7 g/dL (32.0-36.0); MEAN CORPUSCULAR HEMOGLOB 32.3 pg (26.0-34.0); MEAN CORPUSCULAR VOLUME 93.1 fL (80-100); MEAN PLATELET VOLUME 8.9 fL (9.2-13.0); MONOCYTES ABSOLUTE 1.23 10/3/uL (0.21-1.20); NEUTROPHILS 56.6 %; RBC DISTRIBUTION WIDTH 14.7 % (12.0-16.0); RED CELL COUNT 4.49 10/6/uL (4.7-6.1)
[2016-09-12 21:24] LABS: MANUAL DIFF NO %; PLATELET COUNT 324 10/3/uL (150-400); WHITE BLOOD CELLS 17.7 10/3/uL (4.5-10.5)
[2016-09-12 21:42] LABS: EOSINOPHILS 1 %; EOSINOPHILS ABSOLUTE (CALC) 0.18 10/3/uL (0.0-0.53); LYMPHOCYTES 35 %; MONOCYTES 6 %; MONOCYTES ABSOLUTE (CALC) 1.06 10/3/uL (0.21-1.20); NEUTROPHILS ABSOLUTE (CALC) 10.27 10/3/uL (2.02-8.40); PLATELET ESTIMATE ADQ (ADEQUATE); RBC MORPHOLOGY NORM (NORMAL); SEGMENTED NEUTROPHIL (0) 58 %; TOTAL NUCLEATED CELLS 100
[2016-09-12 21:49] LABS: A/G RATIO 1.3 (0.7-1.9); ALKALINE PHOSPHATASE 65 U/L (45-117); CHLORIDE, SERUM 105 MMOL/L (96-112); CO2 (CARBON DIOXIDE) 32 MMOL/L (24-34); CREATININE 1.03 MG/DL (0.70-1.30); GFR AFRICAN AMERICAN 102 ML/MIN (>=60); GFR NON AFRICAN AMERICAN 88 ML/MIN (>=60); GLOBULIN 2.8 G/DL (2.5-4.1); POTASSIUM, SERUM 3.6 MMOL/L (3.5-5.3); SGOT(AST) 11 U/L (5-40); SGPT(ALT) 28 U/L (5-65); SODIUM, SERUM 141 MMOL/L (135-148); TOTAL BILIRUBIN 0.5 MG/DL (0-1.2); TOTAL PROTEIN 6.3 G/DL (6.0-8.5)
[2016-09-12 21:51] LABS: ALBUMIN 3.5 G/DL (3.5-5.0); BUN (BLOOD UREA NITROGEN) 14 MG/DL (6-23); GLUCOSE, SERUM 106 MG/DL (60-99)
[2016-09-12 22:23] LABS: SED RATE 6 MM/HR (0-15)
[2016-09-12 23:20] LABS: C-REACTIVE PROTEIN < 2.9 MG/L (<8.0)
[2016-09-14 04:58] LABS: BASOPHILS 0.1 %; BASOPHILS ABSOLUTE 0.01 10/3/uL (0.0-0.16); EOSINOPHILS 0.1 %; EOSINOPHILS ABSOLUTE 0.01 10/3/uL (0.0-0.53); HEMATOCRIT 39.5 % (40.0-51.0); HEMOGLOBIN 13.3 g/dL (13.6-17.8); IMMATURE GRANULOCYTES 0.3 %; IMMATURE GRANULOCYTES ABSOLUTE 0.03 10/3/uL (0.0-0.11); LYMPHOCYTES 23.6 %; MANUAL DIFF NO %; MEAN CORPUS HGB CONC 33.7 g/dL (32.0-36.0); MEAN CORPUSCULAR HEMOGLOB 31.7 pg (26.0-34.0); MEAN PLATELET VOLUME 8.8 fL (9.2-13.0); MONOCYTES 5.8 %; MONOCYTES ABSOLUTE 0.59 10/3/uL (0.21-1.20); NEUTROPHILS 70.1 %; NEUTROPHILS ABSOLUTE 7.11 10/3/uL (2.02-8.40); PLATELET COUNT 269 10/3/uL (150-400); RBC DISTRIBUTION WIDTH 14.9 % (12.0-16.0); WHITE BLOOD CELLS 10.2 10/3/uL (4.5-10.5)
[2016-09-14 05:13] LABS: CALCIUM, SERUM 8.4 MG/DL (8.5-10.4); CHLORIDE, SERUM 109 MMOL/L (96-112); CREATININE 0.72 MG/DL (0.70-1.30); GFR AFRICAN AMERICAN 131 ML/MIN (>=60); GFR NON AFRICAN AMERICAN 113 ML/MIN (>=60); POTASSIUM, SERUM 4.1 MMOL/L (3.5-5.3); SODIUM, SERUM 142 MMOL/L (135-148)
[2016-09-14 05:21] LABS: BUN (BLOOD UREA NITROGEN) 6 MG/DL (6-23); CO2 (CARBON DIOXIDE) 26 MMOL/L (24-34); GLUCOSE, SERUM 148 MG/DL (60-99)
[2016-09-17 04:17] LABS: BASOPHILS 0 %; EOSINOPHILS 0 %; HEMATOCRIT 38.7 % (40.0-51.0); HEMOGLOBIN 12.7 g/dL (13.6-17.8); IMMATURE GRANULOCYTES 0.6 %; IMMATURE GRANULOCYTES ABSOLUTE 0.06 10/3/uL (0.0-0.11); LYMPHOCYTES 24.8 %; LYMPHOCYTES ABSOLUTE 2.46 10/3/uL (0.67-4.30); MEAN CORPUS HGB CONC 32.8 g/dL (32.0-36.0); MEAN CORPUSCULAR HEMOGLOB 31.3 pg (26.0-34.0); MEAN CORPUSCULAR VOLUME 95.3 fL (80-100); MEAN PLATELET VOLUME 9.4 fL (9.2-13.0); MONOCYTES 6.6 %; MONOCYTES ABSOLUTE 0.66 10/3/uL (0.21-1.20); NEUTROPHILS ABSOLUTE 6.75 10/3/uL (2.02-8.40); PLATELET COUNT 248 10/3/uL (150-400); RBC DISTRIBUTION WIDTH 14.6 % (12.0-16.0); RED CELL COUNT 4.06 10/6/uL (4.7-6.1); WHITE BLOOD CELLS 9.9 10/3/uL (4.5-10.5)
[2016-09-17 04:20] LABS: MANUAL DIFF NO %
[2016-09-17 04:30] LABS: BUN (BLOOD UREA NITROGEN) 8 MG/DL (6-23); CALCIUM, SERUM 8.5 MG/DL (8.5-10.4); CHLORIDE, SERUM 108 MMOL/L (96-112); CO2 (CARBON DIOXIDE) 27 MMOL/L (24-34); CREATININE 0.83 MG/DL (0.70-1.30); GFR AFRICAN AMERICAN 124 ML/MIN (>=60); GFR NON AFRICAN AMERICAN 107 ML/MIN (>=60); GLUCOSE, SERUM 148 MG/DL (60-99); POTASSIUM, SERUM 4.2 MMOL/L (3.5-5.3); SODIUM, SERUM 142 MMOL/L (135-148)
[2016-09-17 04:38] LABS: C-REACTIVE PROTEIN < 2.9 MG/L (<8.0)
== END 2016-09-18 14:51 | disposition home or self-care (01) | DRG 386 ==
LOC: 4EA 19:02
PROVIDERS: Internal Medicine Gastroenterology
DX: K50.812 Crohn's disease of both small and large intestine with intestinal obstruction (principal); F17.210 Nicotine dependence, cigarettes, uncomplicated; Z79.52 Long term (current) use of systemic steroids; Z91.041 Radiographic dye allergy status
CPT/HCPCS: 74020; 74150; 74249; 80048; 80053; 83735; 85025; 85652; 86140; A9270-GY; J1170; J1720; J2405; J2550

== ENCOUNTER 2016-09-20 03:00 | Observation (INO) | payer BC ==
--- NOTE | ~2016-09-20 | HP ---
History And Physical [facility] [address] [place]. [address] NAME: FLORA DUGAN : 72 STATUS : ADM Sindy PAT#: [id number] AGE: 45 ADM/REG DATE : 09/20/16 MR#: [id number] REPORT SERV DATE: 09/20/16 DICTATED BY: MISTY SHIPLEY DATE: 09/20/16 REPORT STATUS : Draft TRANSCRIBED BY: MODL DATE: 09/20/16 DATE OF ADMISSION: 09/20/2016 POINT OF ENTRY: [facility]. PRIMARY CARE PHYSICIAN: None at this time. PRIMARY FAMILY LIVING EDUCATOR: Dr. Polk. CHIEF COMPLAINT: Chest pain. HISTORY OF PRESENT ILLNESS: Mr. Dugan is a 45-year-old with history of Crohn disease, currently on prednisone as well as Humira, who presents to the emergency department today with reports of acute onset of left-sided chest pain. The patient was recently admitted to the GI Service at [facility] from 09/12 through 09/18 with Crohn's exacerbation where he received IV Solu-Medrol as well as completed the starter pack of Humira, which he began in late August. The patient states that upon returning from work on the , he noted that he had bilateral lower extremity swelling and edema without any pain or tenderness. He elevated his legs that evening. Later that evening, he was woken from sleep with the acute onset of left- sided chest pain, described as a pressure. Denied any radiation, but did endorse some diaphoresis and shortness of breath. Also endorsed some pleuritic component as the chest pain was made worse with deep inspiration. This pain lasted for a few hours prompting his presentation to the emergency department. Prior to presentation, he did take 650 mg of aspirin as well as EMS gave him some nitroglycerin without significant improvement in his chest pain. While being evaluated here in the emergency department, his chest pain started to slowly fade away and is now almost completely gone. Initial evaluation in the emergency department, chest x-ray is clear. EKG; nonischemic. Troponin was negative. Labs otherwise negative except for a white count of 15,900. The patient was subsequently admitted to the Hospitalist Service for further evaluation and management. Comprehensive systems otherwise negative unless listed in history of present illness. MEDICAL HISTORY: 1. Crohn disease. 2. Active tobacco abuse. 3. Alcohol abuse. 4. Chronic abdominal pain. SURGICAL HISTORY: Small bowel resection with anastomosis. ALLERGIES: IODINE AND IV CONTRAST, WHICH CAUSE HIVES. History And Physical [address] [address] NAME: FLORA DUGAN : 72 STATUS : ADM Sindy PAT#: [id number] AGE: 45 ADM/REG DATE : 09/20/16 MR#: [id number] REPORT SERV DATE: 09/20/16 DICTATED BY: MISTY SHIPLEY DATE: 09/20/16 REPORT STATUS : Draft TRANSCRIBED BY: POONAM DATE: 09/20/16 HOME MEDICATIONS: 1. Flagyl 500 mg q.8 hours. 2. Omeprazole 20 mg at bedtime. 3. Prednisone 40 mg daily. SOCIAL HISTORY: He does smoke about a pack per day, has for the last 30 years. He drinks about six beers nightly. Denies any illicits. FAMILY MEDICAL HISTORY: Mother with hypertension, diabetes, and congestive heart failure. Father with history of liver disease and alcoholism siblings otherwise healthy. No known immediate family history of premature coronary artery disease. LABS AND IMAGIN. White count 15.9, hemoglobin 14.4, hematocrit 41.7, platelet count is 273. INR 0.9. 2. Sodium is 144, potassium 3.7, chloride 107, carbon dioxide 29, BUN 10, creatinine 0.88, glucose is 90, calcium is 8.7, protein 5.8, albumin is 3.0, bilirubin is 0.4, ALT is 42, AST 13, alkaline phosphatase is 63. 3. Lipase is 382. 4. Troponin less than 0.02. 5. EKG per my review shows normal sinus rhythm. No evidence of any acute ischemia or infarction. Heart rates were in the 70s. Chest x-ray per review shows no acute cardiopulmonary abnormality. PHYSICAL EXAMINATION: VITAL SIGNS: Temperature is 98.1 degrees Fahrenheit, pulse is 72, respirations 16, saturating 100% on room air, blood pressure 160/93. GENERAL: Patient is awake, alert, in no acute distress. Resting comfortably. He is a well developed, well-nourished, male. Family is at bedside. HEENT: Atraumatic and normocephalic. Moist mucous membranes. Pupils are equal, round, reactive to light and accommodation. Extraocular eye movements are intact. No scleral icterus. NECK: No jugular venous distention. No carotid bruits. CARDIAC: Regular rate and rhythm. No murmurs or gallops. Normal S1, S2. LUNGS: Clear to auscultation bilaterally. No wheezes, rhonchi, or crackles. ABDOMEN: Soft, nontender, nondistended with good bowel sounds. No rebound, guarding, or rigidity. EXTREMITIES: Warm, perfused. No cyanosis or clubbing. Does have some trace pedal edema, but no palpable cords or tenderness on palpation. SKIN: Warm and dry. PSYCH: Affect appropriate. NEURO: Alert, oriented x3. Cranial nerves 2 through 12 grossly intact. Speech is normal. Gait not assessed. ASSESSMENT AND PLAN: Mr. Dugan is a 45-year-old gentleman who presents with acute onset of chest pain with a pleuritic component. History And Physical [address] [address] NAME: FLORA DUGAN : 72 STATUS : ADM Sindy PAT#: [id number] AGE: 45 ADM/REG DATE : 09/20/16 MR#: [id number] REPORT SERV DATE: 09/20/16 DICTATED BY: MISTY SHIPLEY DATE: 09/20/16 REPORT STATUS : Draft TRANSCRIBED BY: POONAM DATE: 09/20/16 PROBLEM LIST: 1. Chest pain. 2. Pleuritic chest pain. 3. Leukocytosis. 4. Lower extremity swelling. 5. Crohn disease, on prednisone. PLAN: 1. Chest pain. The patient does have cardiac risk factors including tobacco abuse as well as underlying inflammatory bowel disease. We will continue to trend out cardiac enzymes. Check an echocardiogram as well as a stress test in the morning. Continue the patient on low-dose aspirin as well as nitroglycerin p.r.n. It is possible this could be some kind of medication side effect from Humira as review of Lexicomp does list as less frequent events including chest pain and pericarditis. 2. Pleuritic chest pain. Given the patient's pleuritic chest pain, I think it is worthwhile to rule out PE especially in light of recent hospitalization, recent surgery. Of note, his Wells score is only 1.5, however, it escalates to 4.5 if PE is considered the #1 diagnosis. We will premedicate the patient with prednisone as well as Benadryl and Pepcid and schedule CT of the chest later in the day. 3. Lower extremity edema. I suspect it is due to patient being on high-dose steroids during his previous hospitalization as well as likely IV fluid administration as they were symmetrical and without tenderness or pain, but will order a lower extremity Doppler to rule out DVT. 4. Leukocytosis likely steroid induced. We will continue to monitor. 5. Crohn disease. Continue the patient's home medications. No current troubles at this time. 6. DVT prophylaxis. Lovenox subcu. CODE STATUS: The patient wishes to be full code. JCB/MODL Misty Shipley MD / [id number] CC: Swati Galvan M.D.
--- NOTE | ~2016-09-20 | DS ---
Discharge Summary [facility] [address] [place]. [address] NAME: FLORA BULL : 72 STATUS : DIS Sindy PAT#: [id number] AGE: 45 ADM/REG DATE : 09/20/16 MR#: [id number] REPORT SERV DATE: 09/22/16 DICTATED BY: DATE: REPORT STATUS : Draft TRANSCRIBED BY: MODL DATE: 09/21/16 ADMISSION DATE: 09/20/2016 DISCHARGE DATE: 09/21/2016 DISCHARGE DIAGNOSES: 1. Chest pain. 2. Pleuritic chest pain. 3. Bilateral lower extremity edema. 4. Leukocytosis. 5. Anxiety. 6. Crohn's disease. PROCEDURES AND IMAGIN. Chest PA and lateral showed no acute process. 2. 09/20/2016, venous Doppler bilateral lower extremities showed no evidence of deep vein thrombosis in bilateral lower extremities. 3. 09/20/2016 CTA of the chest showed no evidence of pulmonary embolus. Minor focal subsegmental atelectasis, right middle lobe. Contracted gallbladder without gallstones. 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 HOSPITAL COURSE: Please refer to H and P on 09/20/[address] Nacho Hi for complete details regarding patient's admission and initial workup and management of his chest pain that patient experienced while he was at work. The patient also had noted he had bilateral lower extremity swelling and edema. His chest pain occurred during the night with acute onset. It was also noted the patient's pain was made worse with deep inspiration. The patient is also on Humira and had just completed a full course of Humira as well as taking daily steroids. Of note, the patient had also just been discharged from the hospital on 09/18/2016 with Crohn's flare up. During the patient's stay, he did not complain of any chest pain. He had a CTA of the chest, which showed no pulmonary emboli, he had a negative D-dimer as well as negative troponins x3. The patient also has had a negative bilateral lower extremity venous Doppler to rule out DVT due to his bilateral lower extremity edema. The patient did not exhibit any edema while he has been here. The patient does have mild leukocytosis, for which patient the is receiving daily steroids and most likely probability is that his leukocytosis is steroid related. The patient's Crohn's disease has been treated with Humira which patient just finished as well as steroids. He will be following up with Dr. Polk next week. [facility] the [facility]. The patient has had increased anxiety due to his health status and his multiple doses of steroids prior to being able to have a CTA due to his contrast allergy. PHYSICAL EXAMINATION: VITAL SIGNS: Blood pressure 121/84, O2 saturation is 98% on room air, temperature is 98.2, respirations are 21, heart rate is 79. HEENT: Head is atraumatic, normocephalic. Pupils are equal, round, reactive to light and accommodation. No xanthelasma. Sclerae are clear and nonicteric. Good dentition. NECK: Supple with no obvious thyromegaly or lymphadenopathy. Neck veins are flat. CARDIAC: The patient is in a regular rhythm with S1 and S2. Discharge Summary [address] [address] NAME: FLORA BULL : 72 STATUS : DIS Sindy PAT#: [id number] AGE: 45 ADM/REG DATE : 09/20/16 MR#: [id number] REPORT SERV DATE: 09/22/16 DICTATED BY: DATE: REPORT STATUS : Draft TRANSCRIBED BY: MODL DATE: 09/21/16 LUNGS: Clear to auscultation anterior and posteriorly with normal respiratory effort. ABDOMEN: Soft and nontender with active bowel sounds in all four quadrants. The patient has normal bowel habitus, which is multiple bowel movements daily. No palpable organomegaly. EXTREMITIES: No significant edema, clubbing, or cyanosis. Dorsalis pedis and posterior tibial pulses are palpable bilaterally. MUSCULOSKELETAL: The patient moves all extremities x4. He is ambulatory without assistance. No difficulties with balance. SKIN: Intact, warm, and dry with normal color and turgor. NEURO/PSYCH: The patient is alert and oriented x4, pleasant and cooperative. Cranial nerves 2 through 12 are grossly intact. Affect is bright. No apparent anxiety or depression. DISCHARGE MEDICATIONS: Omeprazole 20 mg daily, Flagyl 500 mg q.8 hours, prednisone 40 mg daily, melatonin 9 mg nightly p.r.n. sleep. ALLERGIES: THE PATIENT IS ALLERGIC TO ORAL AND IV CONTRAST DYE AND IODINE, FOR WHICH HE GETS HIVES. DISCHARGE INSTRUCTIONS: The patient is to follow up with Dr. Polk on his scheduled appointment in one week. Should the patient develop any more chest pain or have excessive swelling or any additional unusual symptoms, the patient is to call Dr. Polk or present to the ER. Approximately 25 minutes has been spent coordinating discharge care of this patient including [id number] encounter and summarization of the discharge. RADHA/GREGL Xena Blanco NP / [id number] CC: Fernando Polk M.D.
[~2016-09-20 03:00] MED LIST changes: +HUMIRA PEN SC; +NORCO1 TA1 PO; +PREVALITE4 G1 PO; +PRILO PO
[2016-09-20 03:08] LABS: BASOPHILS 0.1 %; BASOPHILS ABSOLUTE 0.02 10/3/uL (0.0-0.16); EOSINOPHILS 0.9 %; EOSINOPHILS ABSOLUTE 0.14 10/3/uL (0.0-0.53); HEMATOCRIT 41.7 % (40.0-51.0); HEMOGLOBIN 14.4 g/dL (13.6-17.8); IMMATURE GRANULOCYTES 0.6 %; LYMPHOCYTES 37.5 %; LYMPHOCYTES ABSOLUTE 5.96 10/3/uL (0.67-4.30); MEAN CORPUSCULAR HEMOGLOB 32.4 pg (26.0-34.0); MEAN CORPUSCULAR VOLUME 93.9 fL (80-100); MEAN PLATELET VOLUME 8.9 fL (9.2-13.0); MONOCYTES 8.4 %; MONOCYTES ABSOLUTE 1.34 10/3/uL (0.21-1.20); NEUTROPHILS 52.5 %; NEUTROPHILS ABSOLUTE 8.34 10/3/uL (2.02-8.40); PLATELET COUNT 273 10/3/uL (150-400); RBC DISTRIBUTION WIDTH 14.4 % (12.0-16.0); RED CELL COUNT 4.44 10/6/uL (4.7-6.1)
[2016-09-20 03:10] LABS: IMMATURE GRANULOCYTES ABSOLUTE 0.09 10/3/uL (0.0-0.11); MANUAL DIFF NO %; MEAN CORPUS HGB CONC 34.5 g/dL (32.0-36.0); WHITE BLOOD CELLS 15.9 10/3/uL (4.5-10.5)
[2016-09-20 03:16] LABS: INTERNATIONAL NORMAL RATI 0.9 UNITS (-)
[2016-09-20 03:18] LABS: PARTIAL THROMBO TIME 21.8 SEC (22.5-37.2)
[2016-09-20 03:22] LABS: ALKALINE PHOSPHATASE 63 U/L (45-117); BUN (BLOOD UREA NITROGEN) 10 MG/DL (6-23); CALCIUM, SERUM 8.7 MG/DL (8.5-10.4); CHEST PAIN PROFILE TAT 0 Hrs 18 Mins; CHLORIDE, SERUM 107 MMOL/L (96-112); CO2 (CARBON DIOXIDE) 29 MMOL/L (24-34); CREATININE 0.88 MG/DL (0.70-1.30); DIRECT BILIRUBIN 0.1 MG/DL (0.0-0.4); GFR AFRICAN AMERICAN 121 ML/MIN (>=60); GFR NON AFRICAN AMERICAN 104 ML/MIN (>=60); INDIRECT BILIRUBIN(NOT ORDER) 0.3 MG/DL (0.1-0.9); POTASSIUM, SERUM 3.7 MMOL/L (3.5-5.3); SGOT(AST) 13 U/L (5-40); SGPT(ALT) 42 U/L (5-65); SODIUM, SERUM 144 MMOL/L (135-148); TOTAL BILIRUBIN 0.4 MG/DL (0-1.2); TOTAL PROTEIN 5.8 G/DL (6.0-8.5); TROPONIN I <0.02 NG/ML (<0.05)
[2016-09-20 03:23] LABS: GLUCOSE, SERUM 90 MG/DL (60-99)
[2016-09-20 03:26] LABS: EOSINOPHILS 2 %; EOSINOPHILS ABSOLUTE (CALC) 0.32 10/3/uL (0.0-0.53); ER DIFF TAT 0 Hrs 22 Mins; LYMPHOCYTES 27 %; LYMPHOCYTES ABSOLUTE (CALC) 4.29 10/3/uL (0.67-4.30); MONOCYTES 6 %; MONOCYTES ABSOLUTE (CALC) 0.95 10/3/uL (0.21-1.20); NEUTROPHILS ABSOLUTE (CALC) 10.34 10/3/uL (2.02-8.40); PLATELET ESTIMATE ADQ (ADEQUATE); RBC MORPHOLOGY NORM (NORMAL); SEGMENTED NEUTROPHIL (0) 65 %; TOTAL NUCLEATED CELLS 100
[2016-09-20] MEDS ORDERED: FLAG500TAB PO (04:09)
[2016-09-20 09:35] LABS: CHOL/HDL RATIO(NOT ORDER) 1.7 (0-5); CHOLESTEROL 152 MG/DL (< 200); CK-MB 0.8 NG/ML; CPK 35 U/L (0-200); HDL CHOLESTEROL 87 MG/DL (> 39); LDL CHOLESTEROL 52 MG/DL (< 130); NON-HDL CHOLESTEROL 65 MG/DL (< 160); TRIGLYCERIDE 68 MG/DL (< 150); TROPONIN I <0.02 NG/ML (<0.05)
[2016-09-20 20:12] LABS: CK-MB 0.9 NG/ML; CPK 36 U/L (0-200); TROPONIN I <0.02 NG/ML (<0.05)
[2016-09-21 06:14] LABS: BASOPHILS 0.1 %; BASOPHILS ABSOLUTE 0.01 10/3/uL (0.0-0.16); EOSINOPHILS 0 %; HEMATOCRIT 45.7 % (40.0-51.0); HEMOGLOBIN 15.3 g/dL (13.6-17.8); IMMATURE GRANULOCYTES 0.5 %; IMMATURE GRANULOCYTES ABSOLUTE 0.07 10/3/uL (0.0-0.11); LYMPHOCYTES 12.8 %; LYMPHOCYTES ABSOLUTE 1.92 10/3/uL (0.67-4.30); MEAN CORPUS HGB CONC 33.5 g/dL (32.0-36.0); MEAN CORPUSCULAR HEMOGLOB 31.7 pg (26.0-34.0); MEAN CORPUSCULAR VOLUME 94.8 fL (80-100); MONOCYTES 8.6 %; MONOCYTES ABSOLUTE 1.28 10/3/uL (0.21-1.20); NEUTROPHILS ABSOLUTE 11.67 10/3/uL (2.02-8.40); PLATELET COUNT 304 10/3/uL (150-400); RBC DISTRIBUTION WIDTH 14.3 % (12.0-16.0); RED CELL COUNT 4.82 10/6/uL (4.7-6.1)
[2016-09-21 06:20] LABS: MANUAL DIFF NO %
[2016-09-21 06:32] LABS: BUN (BLOOD UREA NITROGEN) 13 MG/DL (6-23); CALCIUM, SERUM 9.2 MG/DL (8.5-10.4); CHLORIDE, SERUM 105 MMOL/L (96-112); CO2 (CARBON DIOXIDE) 29 MMOL/L (24-34); CREATININE 0.93 MG/DL (0.70-1.30); GFR AFRICAN AMERICAN 115 ML/MIN (>=60); GFR NON AFRICAN AMERICAN 99 ML/MIN (>=60); POTASSIUM, SERUM 4.4 MMOL/L (3.5-5.3); SODIUM, SERUM 140 MMOL/L (135-148); TROPONIN I <0.02 NG/ML (<0.05)
[2016-09-21 06:35] LABS: GLUCOSE, SERUM 126 MG/DL (60-99)
[2016-09-21] MEDS ORDERED: MELA3 PO (09:25)
== END 2016-09-21 10:04 | disposition home or self-care (01) ==
LOC: ER 03:00 → CDU1 04:00
PROVIDERS: Internal Medicine; Nurse Practitioner Acute Care; Nurse Practitioner Family
DX: R07.81 Pleurodynia (principal); R60.0 Localized edema; D72.829 Elevated white blood cell count, unspecified; K50.90 Crohn's disease, unspecified, without complications; K21.9 Gastro-esophageal reflux disease without esophagitis; F41.9 Anxiety disorder, unspecified; F17.210 Nicotine dependence, cigarettes, uncomplicated; Z98.890 Other specified postprocedural states; Z88.8 Allergy status to other drugs, medicaments and biological substances; Z79.899 Other long term (current) drug therapy
CPT/HCPCS: 71020; 71275; 78452; 80048; 80061; 80076; 82550; 82553; 83036; 83690; 83735; 84484; 85025; 85379; 85610; 85730; 93005; 93017; 93306; 93970; 96372; 96374; 99285; A9270-GY; A9502; C9113; G0378; Q9967